=== PATIENT | female | born 1980 | race Caucasian/White ===

== ENCOUNTER 2024-01-21 15:15 | Outpatient (REF) | payer OTHER, SELFPAY ==
[2024-01-21 17:52] LABS: CT PCR NOT DETECTED (Not Detect.); NG PCR NOT DETECTED (Not Detect.)
== END 2024-01-21 15:16 | disposition home or self-care (01) ==
LOC: HO.LAB 15:15
PROVIDERS: PCP Internal Medicine; Visit Provider Internal Medicine
DX: N76.0 Acute vaginitis (principal); B37.31 Acute candidiasis of vulva and vagina
CPT/HCPCS: 87491; 87591

== ENCOUNTER 2024-01-22 15:46 | Outpatient (REF) | payer OTHER, SELFPAY ==
[2024-01-22 17:09] LABS: Appearance Urine Clear; Color Urine Yellow; Glucose Urine UA Negative (Negative); Leukocyte Esterase Urine Moderate (2+) (Negative); Nitrite Urine Negative (Negative); PH 6.5 (5.0-9.0); Specific Gravity - Urine 1.025 (1.005-1.025); UMIC TRIGGER UA YES; Urine Blood Negative (Negative); Urine Ketones Negative (Negative); Urine Protein Negative (Neg-Trace)
[2024-01-22 17:43] LABS: Bacteria Urine Trace (None Seen); Hyaline Casts Urine 0-2 /LPF (0-2); RBC Urine 0-2 /HPF (0-2); WBC Urine 0-5 /HPF (0-5)
== END 2024-01-22 15:47 | disposition home or self-care (01) ==
LOC: HO.LAB 15:46
PROVIDERS: PCP Internal Medicine; Visit Provider Internal Medicine
DX: B37.31 Acute candidiasis of vulva and vagina (principal); B76 Hookworm diseases; R82.79 Other abnormal findings on microbiological examination of urine
CPT/HCPCS: 81001; 87086

== ENCOUNTER 2024-02-19 09:37 | Outpatient (AMB) | payer OTHER, SELFPAY ==
[2024-02-19 09:42] VITALS: BP 92/60; BMI 25.3
--- NOTE | 2024-02-19 09:42 | A.OFFVIS_ITS ---
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 She reports always having menstrual cycles that are heavy, over the last several years pre COVID became progressively longer 8-10 days, with closely spaced bleeding episodes. History of anemia, not on iron supplements. Lab copy sent w/referral dated 11/2020, no current records available. [facility] and had the Nexplanon inserted proximally 1 year ago, prior to that she had tried the pill and had persistent bleeding, and then initiated Depo-Provera which improved the bleeding but often was given at late intervals due to the conflict of scheduling her appointments. Additionally she had a workup at [facility] for the AUB and an abnormal Pap, did not follow through with the D&C due to scheduling conflicts. She reports the last Pap was done in 2022. No records from either organization are on hand today. Last delivery 3 years ago. [facility] Family History (Updated 02/19/24 @ 09:48 by RC Llamas) Maternal Grandmother Diabetes mellitus Social History (Updated 02/19/24 @ 09:48 by RC Llamas) Alcohol intake: current Alcohol intake frequency: a few times a month Patient Tobacco Use Status: Current someday Tobacco user Sexual orientation: Straight/Heterosexual Gender identity: Female Female Reproductive History Menstrual Age of Menarche: 17 Duration of menses: 8-10 days Date of last menstrual period: 01/25/24 control method: implanted (11/2022 [facility]) Total pregnancies: 10 Full term: 2 Premature: 2 Number of Living Children: 4 Ab induced: 2 Ab spontaneous: 4 History of abnormal pap smear: Yes (abn pap hx 2019) Review of Systems Const All systems reviewed & are unremarkable except as noted in HPI and below Physical Exam Vital Signs: Last Vital Signs BP 92/60 02/19/24 09:42 BMI result Body Mass Index 25.3 Const General: cooperative, healthy appearing and no acute distress Orientation/consciousness: patient oriented x3 GI Inspection: Yes normal to inspection Palpation (GI): Soft to palpation and Other GI palpation findings present (Nontender) Rectal Exam - Female: visual inspection normal General: Yes bladder normal to palpation External Female Exam: normal appearance of the urethra Speculum Exam - Vagina: normal appearance of the vagina, normal palpation and normal vaginal discharge Speculum Exam - Cervix: normal appearance of the cervix, normal palpation and Other cervical findings present (Bled slightly with Pap) Bimanual exam- vagina & uterus: normal bimanual exam, normal palpation, uterine size normal, bladder normal to palpation, normal palpation, uterine shape normal and non-tender Bimanual Exam- Adnexa, other: normal adnexae Neuro General: patient oriented x3 Results AMB Test Urine AMB Test Urine Negative Last Edit by RC Llamas on 02/19/24 09:56 Results Reviewed Results Reviewed: Laboratory Last Values Tst Clinic Negative 02/19/24 09:56 Assessment & Plan Assessment & Plan (1) Abnormal uterine bleeding (AUB): Code(s): N93.9 - Abnormal uterine and vaginal bleeding, unspecified Category: Medical (2) History of abnormal cervical Pap smear: Code(s): Z87.42 - Personal history of other diseases of the female genital tract Plan Discussed: Workup for AUB to include pelvic ultrasound, lab work, cultures, UPT is negative, an endometrial biopsy. Preprocedure planning for endometrial biopsy to include having something to eat and drink and taking 3 ibuprofen 1 hour before her appointment time with food. Additionally requested to have STD blood work completed today. All of her questions and concerns were addressed to the best of my ability and shared decision making. She is agreeable to the plan of care. Ultrasound to be scheduled, and follow up in person for EMB and test results. [facility] to [facility] and [facility]. This note is constructed using voice recognition software. While every effort has been made to ensure accuracy, drug safety physician errors may have been included. Orders: Orders AMB HCG Urine Test Today Z32.02 - Encounter for test, result negative US pelvic and transvaginal Today N93.9 - Abnormal uterine and vaginal bleeding, unspecified HIV Ab/Ag Today Z20.2 - Contact with and (suspected) exposure to infections with a predominantly sexual mode of transmission Hepatitis C Antibody Reflex Today Z20.2 - Contact with and (suspected) exposure to infections with a predominantly sexual mode of transmission Hepatitis B Core Antibody Today Z20.2 - Contact with and (suspected) exposure to infections with a predominantly sexual mode of transmission Syphilis Screen Today Z20.2 - Contact with and (suspected) exposure to infections with a predominantly sexual mode of transmission Thyroid Stimulating Hormone Today N92.1 - Excessive and frequent menstruation with irregular cycle, N93.9 - Abnormal uterine and vaginal bleeding, unspecified Bacterial Vaginosis Panel Today N93.9 - Abnormal uterine and vaginal bleeding, unspecified PAP + HPV E6/E7 rfx 18/45 Today N93.9 - Abnormal uterine and vaginal bleeding, unspecified Complete Blood Count no Diff Today N93.9 - Abnormal uterine and vaginal bleeding, unspecified CT NG by PCR Today N93.9 - Abnormal uterine and vaginal bleeding, unspecified Coding Level of Care Code New Pt Level 4 (99739) Diagnoses Abnormal uterine bleeding (AUB) N93.9 History of abnormal cervical Pap smear Z87.42
== END 2024-02-19 10:24 | disposition home or self-care (01) ==
LOC: HO.HWS 09:37
PROVIDERS: PCP Internal Medicine; Visit Provider Advanced Practice Midwife
DX: N93.9 Abnormal uterine and vaginal bleeding, unspecified (principal); Z87.42 Personal history of other diseases of the female genital tract; Z32.02 Encounter for pregnancy test, result negative
CPT/HCPCS: 99204

== ENCOUNTER 2024-02-19 09:37 | Outpatient (REF) | payer OTHER, SELFPAY ==
[2024-02-19 11:29] LABS: Hematocrit 42.4 % (37.0-47.0); Hemoglobin 14.3 g/dl (12.0-16.0); Mean Corpuscular HGB Conc 33.7 g/dl (31.0-35.0); Mean Corpuscular Hemoglobin 28.3 pg (27.0-33.0); Mean Platelet Volume 10.2 fL (9.4-12.3); Platelet Count 272 X10*3/uL (160-400); Red Blood Count 5.05 X10*6/uL (4.20-5.50); Red Cell Distribution Width 13.1 % (11.0-16.0); White Blood Count 7.4 X10*3/uL (4.8-10.8)
[2024-02-19 12:21] LABS: Thyroid Stimulating Hormone 0.59 uIU/mL (0.32-4.0)
[2024-02-19 12:22] LABS: Syphilis Screen Nonreactive (Nonreactive)
[2024-02-19 12:23] LABS: HBc Num1 0.12 S/CO (0.00-0.79); HIV AB/AG Nonreactive (Nonreactive); HIV Num 1 0.04 S/CO (0.00-0.99); Hepatitis B Core Antibody Nonreactive (Nonreactive); ~HepC Num1 0.14 S/CO (0.00-0.79); ~Hepatitis C Antibody Nonreactive (Nonreactive)
[2024-02-19 18:38] LABS: CT PCR NOT DETECTED (Not Detect.); NG PCR NOT DETECTED (Not Detect.)
== END 2024-02-19 09:38 | disposition home or self-care (01) ==
LOC: HO.LAB 09:37
PROVIDERS: PCP Internal Medicine; Visit Provider Advanced Practice Midwife
DX: N92.1 Excessive and frequent menstruation with irregular cycle (principal); N93.9 Abnormal uterine and vaginal bleeding, unspecified; Z20.2 Contact with and (suspected) exposure to infections with a predominantly sexual mode of transmission
CPT/HCPCS: 81025; 84443; 85027; 86704; 86780; 86803; 87389; 87491; 87591

== ENCOUNTER 2024-02-19 10:12 | Outpatient (REF) | payer OTHER, SELFPAY ==
[2024-02-19 18:07] LABS: Bacterial Vaginosis PCR NEGATIVE (Negative); Candida Group PCR NOT DETECTED (Not Detect); Candida glab krusei PCR NOT DETECTED (Not Detect); Trichomonas vaginalis PCR NOT DETECTED (Not Detect)
[2024-02-24 08:53] LABS: HPV mRNA E6/E7 Not Detected (Not Detected)
== END 2024-02-19 10:13 | disposition home or self-care (01) ==
LOC: HO.LNP 10:12
PROVIDERS: Visit Provider Advanced Practice Midwife
DX: N93.9 Abnormal uterine and vaginal bleeding, unspecified (principal)
CPT/HCPCS: 0352U; 87624; 88175

== ENCOUNTER 2024-02-26 11:30 | Outpatient (REF) | payer OTHER, SELFPAY ==
--- NOTE | ~2024-02-26 | US_ITS ---
EXAMINATION: US PELVIS CLINICAL INFORMATION: Abnormal uterine/vaginal bleeding. COMPARISON: None available. TECHNIQUE: Ultrasound of the pelvis is performed using both transabdominal and transvaginal transducers along with Doppler. Transvaginal imaging is performed due to inadequate visualization transabdominally. FINDINGS: Uterus: The uterus is anteverted and measures 8.5 x 4.8 x 5.2 cm. The double wall endometrial thickness is 8 mm. The uterus is smooth in contour and has normal myometrial echogenicity. No visible fibroid. Nabothian cysts are present in the cervix. Adnexa: Both ovaries are visualized. There is normal color flow to the adnexa. There is no ovarian torsion. There is no pelvic ascites or fluid collection. Right ovary measures 4.1 x 2.4 x 3.4 cm for a volume of 17.5 mL, which includes a 3.3 x 2.1 x 2.7 cm cyst. Left ovary measures 2.4 x 1.2 x 1.6 cm for a volume of 2.4 mL and appears normal. US/US pelvic and transvaginal IMPRESSION: No significant abnormality is seen. Benign-appearing right ovarian cyst needs no further follow-up. Electronically signed by: Compa Gaston MD 02/29/2024 09:54 PM EDT RP
== END 2024-02-26 11:31 | disposition home or self-care (01) ==
LOC: HO.US 11:30
PROVIDERS: PCP Internal Medicine; Visit Provider Advanced Practice Midwife
DX: N93.9 Abnormal uterine and vaginal bleeding, unspecified (principal)
CPT/HCPCS: 76830; 76856

== ENCOUNTER 2024-04-14 09:27 | Outpatient (AMB) | payer OTHER, SELFPAY ==
--- NOTE | 2024-04-14 09:29 | A.OFFVIS_ITS ---
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 History of Nexplanon implant in place since 12/16/2022. She has tried Depo in the past and discontinued due to weight gain and hair loss, she reports it did provide cycle control. Has not tried the Mirena IUD. Has occasional pelvic pain bilaterally. She denies any abnormal discharge or exposure to STDs since last visit. She reports her cycles are heavy at times, continues to take iron therapy. Last lab work 02/19/24, H&H was normal range- 14.3/42.4, TSH-0.59. PFSH Medical History Abnormal uterine bleeding (AUB) Nexplanon in place Family History (Updated 02/19/24 @ 09:48 by RC Llamas) Maternal Grandmother Diabetes mellitus Social History (Updated 02/19/24 @ 09:48 by RC Llamas) Alcohol intake: current Alcohol intake frequency: a few times a month Patient Tobacco Use Status: Current someday Tobacco user Sexual orientation: Straight/Heterosexual Gender identity: Female Female Reproductive History Menstrual Age of Menarche: 17 Date of last menstrual period: 03/28/24 Review of Systems Const All systems reviewed & are unremarkable except as noted in HPI and below Physical Exam Vital Signs: Last Vital Signs BP 100/60 04/14/24 09:33 Const General: cooperative, healthy appearing and no acute distress Orientation/consciousness: patient oriented x3 GI Inspection: Yes normal to inspection Palpation (GI): Soft to palpation and Other GI palpation findings present (Nontender) Rectal Exam - Female: visual inspection normal General: Yes bladder normal to palpation External Female Exam: normal appearance of the urethra Speculum Exam - Vagina: normal appearance of the vagina, normal palpation and normal vaginal discharge Speculum Exam - Cervix: normal appearance of the cervix and normal palpation Bimanual exam- vagina & uterus: normal bimanual exam, normal palpation, uterine size normal, bladder normal to palpation, normal palpation, uterine shape normal and non-tender Bimanual Exam- Adnexa, other: normal adnexae Neuro General: patient oriented x3 Office Procedures Endometrial Biopsy Details: The patient is here today for an endometrial biopsy due to AUB to rule out any pathology including atypical, hyperplasia or cancer cells of the uterus. She was counseled regarding anticipatory guidance for the procedure including the risks for pain, infection, bleeding, perforation, potential injury to the tissues may include the cervix, uterus, tubes, bladder and bowels. These injuries may include further treatment and evaluation including surgery, blood transfusions, antibiotics, hospitalizations and anesthesia. Permanent injury and scarring can occur. She was consented for the procedure, and the consent forms were signed. She is agreeable to have the procedure today. All questions were answered. Endometrial Biopsy Procedure: The patient was placed in the dorsal lithotomy position and a sterile speculum inserted. Using aseptic technique for the procedure. The cervix was cleansed with Betadine x 3 swabs. A single toothed tenaculum was placed on the cervix for stabilization and the uterus was sounded to 8 cm with a 4mm pipelle, and tissue sample obtained. Minimal bleeding was observed. The tissue sample was placed in formalin in a patient labeled container by staff assisting and sent to the pathology department for processing and interpretation. The patient tolerate the procedure well and was in good condition when leaving the department. Endometrial Biopsy Post Procedure Care: Nothing in the vagina including: tampons, douching or intimacy until all the bleeding has subsided. There may be some post procedure bleeding for several days, this bleeding is usually light and may turn to a light brown or pink color. Mild cramps may occurs. Nothing in the vaginal including: tampons, douching, or intimacy until all the bleeding has subsided. You may take an over the counter mild analgesic such as Tylenol or Advil (if no allergies) per the manufactures recommendation on dosing, frequency, and follow the directions completely. Call the office if any: fever (over 100.4), flu like symptoms, abdominal pain (worse than cramping), foul smelling, infected appearing vaginal discharge, or heavy bleeding. If indicated: Use condoms to prevent and STI's, and only after the bleeding has stopped completely. Return to the office in 2 weeks for results and plan of care. This note is constructed using voice recognition software. While every effort has been made to ensure accuracy, full stack software engineer errors may have been included. [id number] Biopsy Results AMB Test Urine AMB Test Urine Negative Last Edit by RC Llamas on 04/14/24 09:35 Results Reviewed Results Reviewed: Laboratory Last Values Tst Clinic Negative 04/14/24 09:[address] [address] Ultrasound Report Signed Patient: Karma Teixeira MR#: [id number] : 1980 Acct:[id number] Age/Sex: 43 / F ADM Date: 02/26/24 Loc: HO.US Attending Dr: Brittnee Lozano CNM Ordering Physician: Brittnee Lozano CNM Date of Service: 02/26/24 Procedure(s): US pelvic and transvaginal Accession Number(s): [id number] cc: Ly Rojas MD; Brittnee Lozano CNM~ EXAMINATION: US PELVIS CLINICAL INFORMATION: Abnormal uterine/vaginal bleeding. COMPARISON: None available. TECHNIQUE: Ultrasound of the pelvis is performed using both transabdominal and transvaginal transducers along with Doppler. Transvaginal imaging is performed due to inadequate visualization transabdominally. FINDINGS: Uterus: The uterus is anteverted and measures 8.5 x 4.8 x 5.2 cm. The double wall endometrial thickness is 8 mm. The uterus is smooth in contour and has normal myometrial echogenicity. No visible fibroid. Nabothian cysts are present in the cervix. Adnexa: Both ovaries are visualized. There is normal color flow to the adnexa. There is no ovarian torsion. There is no pelvic ascites or fluid collection. Right ovary measures 4.1 x 2.4 x 3.4 cm for a volume of 17.5 mL, which includes a 3.3 x 2.1 x 2.7 cm cyst. Left ovary measures 2.4 x 1.2 x 1.6 cm for a volume of 2.4 mL and appears normal. US/US pelvic and transvaginal IMPRESSION: No significant abnormality is seen. Benign-appearing right ovarian cyst needs no further follow-up. Electronically signed by: Compa Gsaton MD 02/29/2024 09:54 PM EDT Dictated By: Compa Gaston MD Signed By: <Electronically signed by Compa Gaston MD in OV> 02/29/24 2154 DD/ 1148 TD/TT: 02/26/24 1152 Shop Mechanic: MILAN Assessment & Plan Assessment & Plan (1) Abnormal uterine bleeding (AUB): Code(s): N93.9 - Abnormal uterine and vaginal bleeding, unspecified Category: Medical (2) Encounter to discuss test results: Code(s): Z71.2 - Person consulting for explanation of examination or test findings Plan Discussed: Ultrasound findings right 3 0.3 cm simple cyst, appears benign no follow up as indicated unless clinically indicated. Bleeding pattern with Nexplanon can vary in can be unpredictable in random, consider use of NSAID protocol for a week. Rx for ibuprofen sent in reviewed medication use to take with food. See procedure notes. Plan follow up EMB results in 2 weeks. We will check on bleeding profile at that time and consider further evaluation if needed with ultrasound. Mirena IUD information provided, booklet dispensed she will reviewed literature prior to the next visit and discuss possibly changing to this method. All of her questions and concerns were addressed to the best of my ability and shared decision making. She is agreeable to the plan of care. This note is constructed using voice recognition software. While every effort has been made to ensure accuracy, full stack software engineer errors may have been included. Orders: Orders AMB HCG Urine Test Today N93.9 - Abnormal uterine and vaginal bleeding, unspecified Surgical Today N93.9 - Abnormal uterine and vaginal bleeding, unspecified Medications: New ibuprofen Take with food as directed for one week 600 mg PO Q6H 7 days 28 tabs 0RF Coding Level of Care Code Procedure Only Diagnoses Abnormal uterine bleeding (AUB) N93.9 Encounter to discuss test results Z71.2 CPT Codes Endometrial Biopsy - CPT: 69794-Icwztpccwnn Biopsy ([id number])
[2024-04-14 09:33] VITALS: BP 100/60
== END 2024-04-14 10:02 | disposition home or self-care (01) ==
PROVIDERS: PCP Internal Medicine; Visit Provider Advanced Practice Midwife
DX: N93.9 Abnormal uterine and vaginal bleeding, unspecified (principal); Z32.02 Encounter for pregnancy test, result negative
CPT/HCPCS: 58100

== ENCOUNTER 2024-08-08 13:34 | Outpatient (AMB) | payer OTHER, SELFPAY ==
--- NOTE | 2024-08-08 13:33 | A.OFFVIS_ITS ---
Vital Signs 08/08/24 13:43 Height 5 ft 3 in Weight 154 lb BMI 27.3 BP 129/66 Blood Pressure Location Rt brachial Position Sitting Pulse 71 Intake Visit Reasons: 4x4 inch lipoma rt torso Intake Note: Patient referred by pcp Dr. Rojas for lipoma on Rt torso. Present for yrs. Patient c/o: pain when rubbing against bra strap. Certified Credit Counselor Required: No Accompanied by: Self / Same As Patient Allergies No Known Allergies Allergy (Verified 08/08/24 13:40) HPI Comments Details: Patient presents for evaluation of a large right flank symptomatic lipoma. It has been there several years time. It is significantly increased in size. She would like to have removed. She has no such lesions elsewhere. Chart was reviewed and patient evaluate [facility] Medical History History of endometrial biopsy Dyspareunia, female Chronic tension headaches Depression Abnormal vaginal Pap smear Abnormal uterine bleeding (AUB) Nexplanon in place Family History (Updated 08/05/24 @ 14:43 by RC Thomson) Maternal Grandmother Diabetes mellitus Mother Depression Social History (Updated 08/05/24 @ 14:44 by RC Thomson) Alcohol intake: current Alcohol intake frequency: a few times a month Patient Tobacco Use Status: Current someday Tobacco user Sexually active: Yes Sexual orientation: Straight/Heterosexual Gender identity: Female Female Reproductive History Menstrual Age of Menarche: 17 Physical Exam Chest Other: Chest breath sounds bilaterally, HS 1 in 2 Right mid flank demonstrates a very large roughly 15 x 8 cm lipoma. 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 All questions answered. Arrangements were made for this on a day which is convenient for her. Coding Level of Care Code New Pt Level 5 (60127) Diagnoses Lipomatosis gigantea E88.2
[2024-08-08 13:43] VITALS: BP 129/66; PULSE 71; BMI 27.3
== END 2024-08-08 13:44 | disposition home or self-care (01) ==
PROVIDERS: PCP Internal Medicine; Referring Provider Internal Medicine; Visit Provider Surgery
DX: E88.2 Lipomatosis, not elsewhere classified (principal)
CPT/HCPCS: 99204

== ENCOUNTER 2024-09-01 09:04 | Outpatient (AMB) | payer OTHER, SELFPAY ==
[2024-09-01 09:05] VITALS: BP 104/60; BMI 27.3
--- NOTE | 2024-09-01 09:05 | MHC.OFFVIS ---
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 She has a history of heavy menstrual bleeding at regular cycle intervals, lasting 7-8 days long, heavy bleeding for 4-5 days out of the cycle. Current Nexplanon user inserted in 2022. Always had a history of heavy menstrual bleeding, used Depo prior to the Nexplanon, bled heavily throughout the 3rd month of use, heavier as time progressed until the next dose. She has tried the NSAID protocol without success. [facility] Medical History History of endometrial biopsy Dyspareunia, female Chronic tension headaches Depression Abnormal vaginal Pap smear Abnormal uterine bleeding (AUB) Nexplanon in place Family History Maternal Grandmother Diabetes mellitus Mother Depression Social History Alcohol intake: current Alcohol intake frequency: a few times a month Patient Tobacco Use Status: Current someday Tobacco user Sexual orientation: Straight/Heterosexual Gender identity: Female Female Reproductive History Menstrual Age of Menarche: 17 Review of Systems Const All systems reviewed & are unremarkable except as noted in HPI and below Endo Reports no additional complaints Physical Exam Vital Signs: Last Vital Signs BP 104/60 09/01/24 09:05 BMI result Body Mass Index 27.3 Const General: cooperative, healthy appearing and no acute distress Psych Appearance: well kempt Attitude: cooperative Thought process: Normal thought process present Results Reviewed Results Reviewed: [id number] Name: Karma Teixeira Age/Sex: 43/F Attending: Brittnee Lozano CNM : 1980 Submitted by: Brittnee Lozano CNM Copies to: Ly Rojas MD MR #: [id number] Status: DEP REF Collected: 04/14/24 Location: .LAB Received: 04/15/24 Diagnosis Endometrium, biopsy: Benign dyssynchronous secretory endometrium with scattered poorly-developed and inactive glands and dense stroma, and benign endocervical glandular epithelium; no atypia or carcinoma. Clinical History AUB Microscopic Description Microscopic sections reviewed. Material Received Endometrial biopsy Gross Description Received in formalin labeled ?EMB? is a 2.0 x 2.0 x 0.5 cm aggregate of multiple irregular and tubular cast fragments of congested and hemorrhagic harden-brown tissue, mucus and blood, submitted in toto in a cassette labeled A. CEDS Copies To Ly Rojas MD [facility] [address] [place] [address] Brittnee Lozano CNM [facility] [place] [address] [place] [address] NOTE: Unless otherwise stated, all tissue is formalin-fixed and paraffin-embedded. Some or all of the immunohistochemical tests reported herein may have been developed and their performance characteristics determined by [facility]. They have not been cleared or approved by the U.S. Food and Drug Administration (FDA). However, the FDA has determined that such clearance or approval is not necessary. This laboratory is certified under the Clinical Laboratory Improvement Amendments of Patient: Karma Teixeira Age/Sex: 43/F MR#: [id number] Page 1 of 2 Surgical Pathology [id number] (CLIA) as qualified to perform high complexity clinical laboratory testing. Electronically Signed By: Molly Foster 04/18/24 5708 Patient: Karma Teixeira Age/Sex: 43/F MR#: [id number] Assessment & Plan Assessment & Plan (1) Abnormal uterine bleeding: Code(s): N93.9 - Abnormal uterine and vaginal bleeding, unspecified Plan: Discussed: Reviewed EMB results-no atypia or carcinoma. (2) Counseling for control, intrauterine device: Code(s): Z30.09 - Encounter for other general counseling and advice on contraception Plan: Plan removal for Nexplanon to be scheduled. Plan Discuss: Options for control-cycle control. Mirena information reviewed, risks/benefits. Would like to have the Mirena inserted. Preprocedure planning reviewed advised to have something to eat drink and take 3 Advil 1 hour before her insertion time. The patient expressed understanding and agreement with the plan of care. All of her questions and concerns were addressed to the best of my ability. This note is constructed using voice recognition software. While every effort has been made to ensure accuracy, chemical tank worker errors may have been included. Coding Level of Care Code Est Pt Level 3 (17654) Diagnoses Abnormal uterine bleeding N93.9 Counseling for control, intrauterine device Z30.09
== END 2024-09-01 09:35 | disposition home or self-care (01) ==
LOC: HO.HWS 09:04
PROVIDERS: PCP Internal Medicine; Visit Provider Advanced Practice Midwife
DX: N93.9 Abnormal uterine and vaginal bleeding, unspecified (principal); Z30.09 Encounter for other general counseling and advice on contraception
CPT/HCPCS: 99213